=== PATIENT | male | born 1990 | race Caucasian/White ===

== ENCOUNTER 2019-09-16 23:12 | Emergency (ER) | payer OTHER ==
[~2019-09-16] VITALS: Ht 177.8 cm; Wt 77.1 kg
[2019-09-16 23:18] VITALS: Ht 177.8 cm; Wt 77.1 kg
[2019-09-17 00:54] VITALS: BP 115/79
== END 2019-09-17 00:54 | disposition home or self-care (01) ==
LOC: ED 23:12
DX: J45.901 Unspecified asthma with (acute) exacerbation (principal)
CPT/HCPCS: J7512; J7620; Q0092